=== PATIENT | male | born 1995 | race Caucasian/White ===

== ENCOUNTER 2018-09-06 09:22 | Emergency (ER) | payer OTHER ==
[~2018-09-06] VITALS: Ht 182.9 cm; Wt 79.5 kg
[2018-09-06] MEDS ORDERED: NS 1,000 ML IV ONE (10:00)
[2018-09-06] MEDS ORDERED: DICYCLOMINE INJ 20MG/2ML (J0500) IM ONE (10:00)
[2018-09-06] MEDS ORDERED: ONDANSETRON 4MG/2ML VIAL (J2405) IV ONE (10:00)
[2018-09-06 10:47] LABS: ALBUMIN 4.9 GM/DL (3.2-5.2); ALT/SGPT 18 U/L (12-78); BILIRUBIN,DIRECT 0.2 MG/DL (0.0-0.2); BILIRUBIN,TOTAL 0.8 MG/DL (0.2-1.0); BLOOD UREA NITROGEN 16 MG/DL (7-18); CALCIUM LEVEL 9.7 MG/DL (8.5-10.1); CARBON DIOXIDE LEVEL 26 MEQ/L (21-32); CHLORIDE LEVEL 104 MEQ/L (98-107); CREATININE FOR GFR 0.97 MG/DL (0.70-1.30); GLUCOSE, FASTING 100 MG/DL (70-100); LIPASE 159 U/L (73-393); SODIUM LEVEL 136 MEQ/L (136-145); TOTAL PROTEIN 8.4 GM/DL (6.4-8.2)
[2018-09-06 12:02] LABS: BASO # 0.1 10^3/uL (0.0-0.2); BASO % 0.6 % (0.0-1.0); EOS % 0.1 % (0.0-3.0); HEMATOCRIT 44.1 % (42.0-52.0); HEMOGLOBIN 16.6 g/dl (13.5-17.5); LYMPH % 11.6 % (24.0-44.0); MEAN CORPUSCULAR HEMOGLOBIN 32.9 pg (27.0-33.0); MEAN CORPUSCULAR VOLUME 87.3 fl (80.0-96.0); MONO # 0.2 10^3/uL (0.0-0.8); MONO % 2.7 % (0.0-5.0); NEUTROPHILS # 7.3 10^3/uL (1.8-7.7); NEUTROPHILS % 84.1 % (36.0-66.0); PLATELET COUNT, AUTOMATED 279 10^3/uL (150-450); RED BLOOD COUNT 5.05 10^6/uL (4.30-6.10); WHITE BLOOD COUNT 8.6 10^3/uL (4.0-10.0)
[2018-09-06 12:04] LABS: MEAN CORPUSCULAR HGB CONC 37.6 g/dl (32.0-36.5)
[2018-09-06] MEDS ORDERED: DICY1CAP8 PO (12:12)
[2018-09-06] MEDS ORDERED: ONDA4TAB6 PO (12:12)
[2018-09-06 12:22] VITALS: BP 131/78
== END 2018-09-06 12:23 | disposition home or self-care (01) ==
LOC: M ED 09:22
DX: K52.9 Noninfective gastroenteritis and colitis, unspecified (principal)
CPT/HCPCS: 80048; 80076; 81001; 83690; 85025; 96372; 96374; 99284; J0500; J2405

== ENCOUNTER 2019-12-11 04:12 | Emergency (ER) | payer OTHER ==
[~2019-12-11] VITALS: Ht 182.9 cm; Wt 98.6 kg
[~2019-12-11 04:12] MED LIST: DICY1CAP8 PO; ONDA4TAB6 PO
[2019-12-11 05:14] LABS: ALBUMIN 4.4 GM/DL (3.2-5.2); BILIRUBIN,DIRECT 0.2 MG/DL (0.0-0.2); BILIRUBIN,TOTAL 0.5 MG/DL (0.2-1.0); TOTAL PROTEIN 7.9 GM/DL (6.4-8.2)
[2019-12-11] MEDS: GASTROGRAFIN SOLUTION 30ML PO SCH ×2 (05:28→06:00)
[2019-12-11 05:34] LABS: BASO # 0.1 10^3/uL (0.0-0.2); EOS # 0.1 10^3/uL (0.0-0.5); EOS % 2.1 % (0.0-3.0); HEMATOCRIT 42.1 % (42.0-52.0); HEMOGLOBIN 15.6 g/dl (13.5-17.5); LYMPH # 1.8 10^3/uL (1.5-5.0); LYMPH % 28.3 % (24.0-44.0); MEAN CORPUSCULAR HEMOGLOBIN 32.8 pg (27.0-33.0); MEAN CORPUSCULAR VOLUME 88.6 fl (80.0-96.0); MONO # 0.5 10^3/uL (0.0-0.8); MONO % 8.7 % (0.0-5.0); NEUTROPHILS # 3.6 10^3/uL (1.5-8.5); PLATELET COUNT, AUTOMATED 235 10^3/uL (150-450); RED BLOOD COUNT 4.75 10^6/uL (4.30-6.10); WHITE BLOOD COUNT 6.2 10^3/uL (4.0-10.0)
[2019-12-11 05:37] LABS: MEAN CORPUSCULAR HGB CONC 37.1 g/dl (32.0-36.5)
[2019-12-11] MEDS ORDERED: ISOVUE-370 76% 100ML VIAL As Ordered ONE (05:38)
[2019-12-11] MEDS ORDERED: METOCLOPRAMIDE INJ 10MG/2ML VIAL (J2765 PER 1) IV ONE (05:45)
--- NOTE | 2019-12-11 06:05 | REPVR ---
PROCEDURE INFORMATION: Exam: CT Abdomen And Pelvis With Contrast Exam date and time: 12/11/2019 5:11 AM Age: 23 years old Clinical indication: Abdominal pain; Generalized; Patient HX: PT vomited oral; Additional info: L pain TECHNIQUE: Imaging protocol: Computed tomography of the abdomen and pelvis with intravenous contrast. Radiation optimization: All CT scans at this facility use at least one of these dose optimization techniques: automated exposure control; mA and/or kV adjustment per patient size (includes targeted exams where dose is matched to clinical indication); or iterative reconstruction. Contrast material: ISO; Contrast volume: 100 ml; Contrast route: AC; Other contrast: Oral, ggraphin, 30cc; COMPARISON: No relevant prior studies available. FINDINGS: Tubes, catheters and devices: NG tube extending into the stomach. Liver: The liver attenuation is 68 Hounsfield units and the spleen is 89 Hounsfield units. Gallbladder and bile ducts: Normal. No calcified stones. No ductal dilation. Pancreas: Normal. No ductal dilation. Spleen: Normal. No splenomegaly. Adrenals: Normal. No mass. Kidneys and ureters: Normal. No hydronephrosis. Stomach and bowel: Unremarkable. No obstruction. No mucosal thickening. Appendix: A normal appendix is seen. Intraperitoneal space: Unremarkable. No free air. No significant fluid collection. Vasculature: Incidental note of an accessory retroaortic left renal vein. Lymph nodes: Unremarkable. No enlarged lymph nodes. Bladder: Unremarkable as visualized. Reproductive: Unremarkable as visualized. Bones/joints: Unremarkable. No acute fracture. Soft tissues: Unremarkable. IMPRESSION: 1. NG tube extending into the stomach. 2. Otherwise negative CT abdomen/pelvis. No bowel obstruction or distention. Electronically signed by: Raza Palomares On 12/11/2019 06:05:20 AM
[2019-12-11] MEDS ORDERED: REGL10TA6 PO (06:35)
[2019-12-11 06:55] VITALS: BP 132/68
== END 2019-12-11 06:56 | disposition home or self-care (01) ==
LOC: M ED 04:12
DX: K52.9 Noninfective gastroenteritis and colitis, unspecified (principal); R10.32 Left lower quadrant pain; R11.10 Vomiting, unspecified
CPT/HCPCS: 74177; 80047; 80076; 81001; 83690; 85025; 96374; 99284; J2765; Q9963; Q9967

== ENCOUNTER 2020-02-17 07:19 | Emergency (ER) | payer OTHER ==
[~2020-02-17] VITALS: Ht 185.4 cm; Wt 100.2 kg
[2020-02-17 07:19] VITALS: BP 133/74
[~2020-02-17 07:19] MED LIST changes: +REGL10TA6 PO
[2020-02-17] MEDS ORDERED: NS 1,000 ML IV ONE (07:45)
[2020-02-17 08:27] LABS: BASO % 0.7 % (0.0-1.0); EOS # 0.1 10^3/uL (0.0-0.5); EOS % 1.6 % (0.0-3.0); HEMATOCRIT 43.2 % (42.0-52.0); LYMPH # 1.6 10^3/uL (1.5-5.0); LYMPH % 26.3 % (24.0-44.0); MEAN CORPUSCULAR HEMOGLOBIN 33.5 pg (27.0-33.0); MEAN CORPUSCULAR VOLUME 90.4 fl (80.0-96.0); MONO # 0.5 10^3/uL (0.0-0.8); MONO % 7.6 % (0.0-5.0); NEUTROPHILS # 3.9 10^3/uL (1.5-8.5); NEUTROPHILS % 63.1 % (36.0-66.0); PLATELET COUNT, AUTOMATED 244 10^3/uL (150-450); RED BLOOD COUNT 4.78 10^6/uL (4.30-6.10); WHITE BLOOD COUNT 6.1 10^3/uL (4.0-10.0)
--- NOTE | 2020-02-17 08:53 | REP ---
Clinical: Right upper quadrant pain with Mejia sign. Technique: Real time drew scale ultrasound examination using curved array transducer. Findings: Gallbladder is normal and without gallstones, wall thickening, or pericholecystic fluid. No biliary ductal dilatation is appreciated and the common bile duct measures 4.3 mm diameter. Liver includes two subcentimeter hyperechoic foci in the right lobe suggesting small hemangiomas. The pancreas is normal in appearance. Right kidney is normal in reniform shape without hydronephrosis and measures 10.1 x 5.8 x 4.7 cm. No ascites in the visualized right upper quadrant. Impression: 1. Normal gallbladder and biliary system. 2. Two small subcentimeter hemangiomas in the right hepatic lobe. Electronically Signed by Humberto Gutierrez MD 02/17/2020 08:44 A
[2020-02-17 08:55] LABS: ALBUMIN 4.3 GM/DL (3.2-5.2); ALT/SGPT 38 U/L (12-78); AMYLASE 41 U/L (25-115); BILIRUBIN,DIRECT 0.2 MG/DL (0.0-0.2); BILIRUBIN,TOTAL 0.9 MG/DL (0.2-1.0); CK-MB VALUE MASS 1.8 NG/ML (<3.6); CPK CREATINE PHOSPHOKINASE 690 U/L (39-308); LIPASE 160 U/L (73-393); MB/CK RELATIVE INDEX 0.26 (< OR =4); TOTAL PROTEIN 7.4 GM/DL (6.4-8.2); TROPONIN I < 0.02 NG/ML (< 0.10)
--- NOTE | 2020-02-17 08:57 | REP ---
Clinical: Chest and abdominal pain . Comparison: None . Technique: PA and lateral. Findings: The mediastinum and cardiac silhouette are normal. The lung griffith are clear and without acute consolidation, effusion, or pneumothorax. The skeletal structures are intact and normal. Impression: 1. No acute cardiopulmonary process. Electronically Signed by Humberto Gutierrez MD 02/17/2020 08:49 A
[2020-02-17] MEDS ORDERED: ISOVUE-370 76% 100ML VIAL As Ordered ONE (09:08)
[2020-02-17] MEDS ORDERED: PANTOPRAZOLE 40MG VIAL (C9113 PER 1) IV ONE (09:15)
--- NOTE | 2020-02-17 10:18 | REP ---
Clinical: Acute pleuritic chest pain. Technique: Axial contrast enhanced images from the thoracic inlet to the upper abdomen using 75 ml Isovue 370 intravenous contrast material with coronal and sagittal re-formations. Findings: Satisfactory enhancement of the pulmonary vasculature is achieved and no filling defects are identified to suggest pulmonary embolus. Thoracic aorta is normal caliber without aneurysm or dissection. Heart and pericardium are normal. Bilateral lung griffith are well aerated and clear without acute pulmonary parenchymal consolidation or atelectasis. No nodule or mass lesion. No pleural effusion/reaction. No pneumothorax. No adenopathy. Impression: No evidence for pulmonary embolus. No acute pleuroparenchymal or mediastinal process. Electronically Signed by Humberto Gutierrez MD 02/17/2020 10:09 A
--- NOTE | 2020-02-17 10:22 | REP ---
Clinical: Right upper quadrant abdominal pain. Technique: Axial contrast enhanced images from the lung bases to the pubic symphysis using 100 ml Isovue 370 intravenous contrast material with coronal and sagittal re-formations. Comparison: 12/11/2019 Findings: Liver, spleen, pancreas, gallbladder, bilateral adrenal glands and kidneys are normal. The enteric system is without obstruction or obvious acute inflammatory process. Normal terminal ileum, cecum and appendix identified in the right lower quadrant. Pelvis demonstrates normal bladder and age appropriate prostate/seminal vesicles. Ascites. No free air. No adenopathy. Abdominal aorta and vasculature normal. Incidental circumaortic left renal veins noted. Surrounding musculoskeletal structures are intact. Lung bases are clear. Impression: Normal contrast enhanced CT of the abdomen and pelvis. Electronically Signed by Humberto Gutierrez MD 02/17/2020 10:13 A
[2020-02-17] MEDS ORDERED: PROT1TAB2 PO (10:26)
== END 2020-02-17 10:45 | disposition home or self-care (01) ==
LOC: M ED 07:19
DX: K29.70 Gastritis, unspecified, without bleeding (principal); K21.9 Gastro-esophageal reflux disease without esophagitis; D18.03 Hemangioma of intra-abdominal structures; Z79.899 Other long term (current) drug therapy
CPT/HCPCS: 71046; 71275; 74177; 76705; 80047; 80076; 82150; 82550; 82553; 83690; 84484; 85025; 85379; 96361; 96374; 99284; C9113; Q9967